=== PATIENT | male | born 1985 | race American Indian/Alaskan Native ===

== ENCOUNTER 2020-02-09 16:08 | Emergency (ER) | payer SELFPAY ==
[2020-02-09 16:13] VITALS: BP 139/100
[2020-02-09] MEDS ORDERED: LORazepam 1 MG TAB PO ONE (16:13)
--- NOTE | 2020-02-09 16:16 | Emergency Department Report ---
ED Anxiety HPI - General Chief Complaint: Anxiety Stated Complaint: ANXIETY ATTACK/CHEST PAIN Time Seen by Provider: 02/09/20 16:13 Source: patient Mode of arrival: Ambulatory - History of Present Illness Initial Comments: 34-year-old male with a known history of anxiety resents emergency department complaining of a flareup and seeking to have a treatment to help him calm down reports no suicidal homicidal ideation reports no signs of psychosis reports no illicit drug use but does admit to smoking cigars. No fever, chills, sweats no chest pain or palpitations does feel anxious and uneasy. MD Complaint: anxiety Previous History of Same: Yes Severity: mild (Patient is having a conversation on his cell phone ambulatory no distress) Worsens With: nothing Associated symptoms: denies: diaphoresis, denies other symptoms, fever/chills, anorexia, malaise, rash, syncope, weakness - Related Data Home Medications: Previous Rx's Medication Instructions Recorded Last Taken Type hydrOXYzine PAMOATE [Vistaril] 25 mg PO Q8HR PRN #14 capsule 02/09/20 Unknown Rx Allergies/Adverse Reactions: Allergies Allergy/AdvReac Type Severity Reaction Status Date / Time No Known Allergies Allergy Unverified 02/09/20 16:12 ED Review of Systems ROS: Stated complaint: ANXIETY ATTACK/CHEST PAIN Other details as noted in HPI Comment: All other systems reviewed and negative ED Past Medical Hx - Past Medical History Previous Medical History?: Yes Additional medical history: anxiety - Surgical History Past Surgical History?: Yes Additional Surgical History: broken jaw - Social History Smoking Status: Current Every Day Smoker Substance Use Type: Marijuana - Medications Home Medications: Home Medications Medication Instructions Recorded Confirmed Last Taken Type hydrOXYzine PAMOATE [Vistaril] 25 mg PO Q8HR PRN #14 capsule 02/09/20 Unknown Rx ED Physical Exam - General Limitations: No Limitations General appearance: alert, in no apparent distress - Head Head exam: Present: atraumatic, normocephalic - Eye Eye exam: Present: normal appearance, PERRL, EOMI Pupils: Present: normal accommodation - ENT ENT exam: Present: mucous membranes moist - Neck Neck exam: Present: normal inspection, full ROM - Respiratory Respiratory exam: Present: normal lung sounds bilaterally. Absent: respiratory distress, wheezes, rales - Cardiovascular Cardiovascular Exam: Present: regular rate, normal rhythm. Absent: systolic murmur, diastolic murmur, rubs, gallop - GI/Abdominal GI/Abdominal exam: Present: soft, normal bowel sounds. Absent: tenderness, guarding, hypoactive bowel sounds, organomegaly, mass, bruit - Rectal Rectal exam: Present: deferred - Extremities Exam Extremities exam: Present: normal inspection - Back Exam Back exam: Present: normal inspection - Neurological Exam Neurological exam: Present: alert, oriented X3, CN II-XII intact, normal gait. Absent: motor sensory deficit - Psychiatric Psychiatric exam: Present: normal affect, normal mood, anxious. Absent: flat affect, manic, homicidal ideation, suicidal ideation - Skin Skin exam: Present: warm, dry, intact, normal color. Absent: rash ED Course Vital Signs 02/09/20 16:11 Temperature 98.0 F Pulse Rate 98 H Respiratory 24 Rate Blood Pressure 139/100 O2 Sat by Pulse 100 Oximetry ED Medical Decision Making - Medical Decision Making Patient is ambulatory reporting resolution of symptoms at that point provided Ativan still reports no suicidal homicidal ideation of sound judgment cranial nerves II to XII intact alert and oriented x4 pain-free. Plan is to have patient to discharge home and resume his outpatient therapy for anxiety Critical care attestation.: If time is entered above; I have spent that time in minutes in the direct care of this critically ill patient, excluding procedure time. ED Disposition Clinical Impression: Anxiety Disposition: DC-01 TO HOME OR SELFCARE Is pt being admited?: No Does the pt Need Aspirin: No Condition: Stable Instructions: Generalized Anxiety Disorder (ED), Anxiety (ED) Prescriptions: hydrOXYzine PAMOATE [Vistaril] 25 mg PO Q8HR PRN #14 capsule PRN Reason: Anxiety Referrals: [facility] [Provider Group] - 3-5 Days
== END 2020-02-09 16:52 | disposition home or self-care (01) ==
LOC: ED 16:08
DX: F41.9 Anxiety disorder, unspecified (principal); F17.200 Nicotine dependence, unspecified, uncomplicated; F12.10 Cannabis abuse, uncomplicated; Z98.890 Other specified postprocedural states; Z79.899 Other long term (current) drug therapy
CPT/HCPCS: 99282